=== PATIENT | male | born 1950 | race Caucasian/White ===

== ENCOUNTER → 2019-02-05 13:06 | Outpatient (CLI) | payer MEDICARE, BC ==
[2012-03-10 10:41] VITALS: BMI 23.8
== END | disposition home or self-care (01) ==
LOC: D.HCCARDIO 13:00 → D.OT 13:00 → D.HCCECHO 13:00
PROVIDERS: ATTEND Internal Medicine Cardiovascular Disease
DX: I34.0 Nonrheumatic mitral (valve) insufficiency (principal)